=== PATIENT | female | born 1965 | race Caucasian/White ===

== ENCOUNTER 2019-02-15 18:19 | Emergency (ER) | payer BC ==
[2019-02-15 18:57] VITALS: BP 132/80; PULSE 67; TEMP 98.5; BMI 27.1
--- NOTE | 2019-02-15 19:00 | PDOC ---
Documentation entered by Damari Dennison SCRIBE, acting as scribe for Esvin Recinos MD. Esvin Recinos MD: This documentation has been prepared by the Juma mccracken Joy, SCRIBE, under my direction and personally reviewed by me in its entirety. I confirm that the documentation accurately reflects all work, treatment, procedures, and medical decision making performed by me. History of Present Illness - General Chief Complaint: Injury Stated Complaint: LEFT FOOT BUMP Time Seen by Provider: 02/15/19 18:25 History Source: Patient Exam Limitations: No Limitations - History of Present Illness Initial Comments: 02/15/19 18:58 The patient is a 53 year old female with no significant past medical history who presents to the ED with left foot pain that started a few hours ago. As per patient she was cleaning all day and was mostly on her hands and knees, lifting heavy objects, and going up and down a ladder. She denies any injuries or falls but felt tightness in her L foot. When she took off her shoes, she noticed swelling to the top of her L foot. Patient states that it hurts slightly to walk or put pressure on the foot. Pt notes she has been hiking, walking and running a lot the past few weeks but denies any pain in her foot prior to today. Denies focal numbness, weakness, or tingling. Denies fevers or chills. Denies any other symptoms. Past History - Past Medical History Allergies/Adverse Reactions: Allergies Allergy/AdvReac Type Severity Reaction Status Date / Time No Known Allergies Allergy Verified 02/15/19 18:58 Home Medications: Ambulatory Orders NK [No Known Home Medication] 02/15/19 Review of Systems - Review of Systems Able to Perform ROS?: Yes Comments:: 02/15/19 18:58 GENERAL/CONSTITUTIONAL: No fever or chills. No weakness. HEAD, EYES, EARS, NOSE AND THROAT: No change in vision. No ear pain or discharge. No sore throat. CARDIOVASCULAR: No chest pain, no shortness of breath, no loss of consciousness RESPIRATORY: No cough, wheezing, or hemoptysis. GASTROINTESTINAL: No nausea, vomiting, diarrhea or constipation. GENITOURINARY: No dysuria, frequency, or change in urination. MUSCULOSKELETAL: + pain and swelling to left foot. No neck or back pain. SKIN: No rash NEUROLOGIC: No vertigo, no change in strength/sensation. ENDOCRINE: No increased thirst. No abnormal weight change. HEMATOLOGIC/LYMPHATIC: No anemia, easy bleeding, or history of blood clots. ALLERGIC/IMMUNOLOGIC: No hives or skin allergy. *Physical Exam - Physical Exam Comments: 02/15/19 18:58 GENERAL: Awake, alert, and fully oriented, in no acute distress. HEAD: No signs of trauma EYES: PERRLA, EOMI, sclera anicteric, conjunctiva clear ENT: Auricles normal inspection, hearing grossly normal, nares patent, oropharynx clear without exudates. Moist mucosa NECK: Nontender, no stepoffs, Normal ROM, supple, no lymphadenopathy, JVD, or masses LUNGS: Breath sounds equal, clear to auscultation bilaterally. No wheezes, and no crackles HEART: Regular rate and rhythm, normal S1 and S2, no murmurs, rubs or gallops ABDOMEN: Soft, nontender, normoactive bowel sounds. No guarding, no rebound. No masses EXTREMITIES: + L foot with 3cm hematoma to dorsum of 2nd and 3rd metatarsals, no bony tenderness, full ROM all digits NEUROLOGICAL: Cranial nerves II through XII intact. 5/5 strength and sensation in all extremities, Normal speech, normal gait, normal cerebellar function SKIN: Warm, Dry, normal turgor, no rashes or lesions noted. Medical Decision Making - Medical Decision Making 02/15/19 19:02 53 F with atraumatic L foot hematoma. Will r/o stress fracture with XR. - XR L foot Pt signed out to Dr. Gimenez at 7PM, pending XR and re-evaluation Discharge - Discharge Information Problems reviewed: Yes Clinical Impression/Diagnosis: Foot contusion Qualifiers: Encounter type: initial encounter Laterality: left Qualified Code(s): S90.32XA - Contusion of left foot, initial encounter Condition: Stable Disposition: HOME - Follow up/Referral Referrals: Dante Marsh MD [Staff Physician] - 1 week - Patient Discharge Instructions Patient Printed Discharge Instructions: Contusion Additional Instructions: Ice/elevation as much as possible over the next 48 hours Dontae wrap to foot during the day for the next 5 days Tylenol/Advil as needed for pain Avoid strenuous activity, especially involving walking/running, over the next several days Follow-up with orthopedics ( group) if you have persistent pain/swelling - Post Discharge Activity
--- NOTE | 2019-02-15 19:30 | PDOC ---
*Physical Exam - Vital Signs Last Vital Signs Temp Pulse Resp BP Pulse Ox 98.5 F 67 20 132/80 99 02/15/19 18:22 02/15/19 18:22 02/15/19 18:22 02/15/19 18:22 02/15/19 18:22 ED Progress Note - Progress Note Progress Note: Care of this patient received from Left foot x-ray preliminary reading: No evidence of fracture or dislocation. Clinical presentation most consistent with foot contusion. Dontae wrap applied. Patient should elevate and ice the area for the next 48 hours. Dontae wrap should be continued during the day for the next 5 to 7 days. Patient should avoid strenuous walking/running for the next several days. She does not have an orthopedist and referral information for Dr.Ilan victor provided for the patient Discharge - Discharge Information Problems reviewed: Yes Clinical Impression/Diagnosis: Foot contusion Qualifiers: Encounter type: initial encounter Laterality: left Qualified Code(s): S90.32XA - Contusion of left foot, initial encounter Condition: Stable Disposition: HOME - Follow up/Referral Referrals: Dante Marsh MD [Staff Physician] - 1 week - Patient Discharge Instructions Patient Printed Discharge Instructions: Contusion Additional Instructions: Ice/elevation as much as possible over the next 48 hours Dontae wrap to foot during the day for the next 5 days Tylenol/Advil as needed for pain Avoid strenuous activity, especially involving walking/running, over the next several days Follow-up with orthopedics (Dr.Ilan victor) if you have persistent pain/swelling - Post Discharge Activity
== END 2019-02-15 19:35 | disposition home or self-care (01) ==
LOC: FER 18:19
DX: S90.32XA Contusion of left foot, initial encounter (principal); X58.XXXA Exposure to other specified factors, initial encounter; Y93.9 Activity, unspecified; Y92.9 Unspecified place or not applicable
CPT/HCPCS: 73630-TC-LT; 99282-25